=== PATIENT | female | born 1970 | race Caucasian/White ===

== ENCOUNTER → 2018-03-23 16:16 | Emergency (ER) | payer SELFPAY ==
[2018-03-23 16:49] LABS: Urine Appearance Clear; Urine Blood 1+ (Negative); Urine Color Straw; Urine Ketones Negative (Negative); Urine Protein Negative (Negative); Urine Red Blood Cell Absent (Absent); Urine Specific Gravity 1.004 (1.010-1.030); Urine Urobilinogen Negative (Negative); Urine White Blood Cell Trace(0-5/hpf) (Absent)
[2018-03-23 17:22] LABS: ABS Basophils 0.1 10^3/ul (0-0.2); ABS Eosinophils 0.2 10^3/ul (0-0.6); ABS Lymphocytes 2.7 10^3/ul (1.0-4.8); ABS Monocytes 0.6 10^3/ul (0-0.8); ABS Neutrophils 4.3 10^3/ul (1.5-7.7); ABS Nucleated RBC 0 10^3/ul; Hematocrit 38 % (35-47); Lymphocyte % 34.8 % (25-47); Mean Corpuscular HGB Conc 34 g/dl (31-36); Mean Corpuscular Hemoglobin 29 pg (27-31); Mean Corpuscular Volume 86 fL (80-97); Mean Platelet Volume 7.9 um3 (7.4-10.4); Nucleated Red Blood Cells % 0; Platelet Count 306 10^3/ul (150-450); Red Blood Count 4.49 10^6/ul (4.00-5.40); Red Cell Distribution Width 14 % (10.5-15); White Blood Count 7.8 10^3/ul (3.5-10.8)
[2018-03-23 17:39] LABS: EGFR Non-African American 90.8 (>60)
--- NOTE | 2018-03-23 21:02 | ED ---
HPI Diabetic - HPI Summary HPI Summary: The patient is a 47 y/o F presenting to [facility] accompanied by her with a chief complaint of low blood sugar and feeling of dizziness with an onset starting yesterday. 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 She measured her glucose level, which was low at 48 mg/dL. She ate sugary and carbohydrate-full foods, and her blood sugar went back up to 70 mg/dL but decreased again two hours later. 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 She reports that she has been on a low-carb diet for 12 years, and a gastric bypass surgery 7 years ago that caused her to have similar symptoms only within the first year after the surgery. However, her glucose levels have never been as low as they were yesterday, and she never felt like she was going to have a syncopal episode, but yesterday she was near syncope. When she was having a similar experience after her surgery, she was seeing her surgeon at [facility], but she has never seen an chemical recovery operator. She currently takes Synthroid, Lioresal, Gabapentin, and Zyrtec. She does not have a hx of diabetes. - History Of Current Complaint Chief Complaint: EDDiabeticProb Hx Obtained From: Patient Onset/Duration: Sudden Onset, Lasting Days - starting yesterday, Still Present Timing: Constant Severity Initially: Moderate Severity Currently: Moderate Character: Alert Related History: Other - gastric bypass surgery - Allergies/Home Medications Allergies/Adverse Reactions: Allergies Allergy/AdvReac Type Severity Reaction Status Date / Time clavulanic acid Allergy Unknown Verified 03/23/18 16:22 Reaction Details erythromycin base Allergy Unknown Verified 03/23/18 16:22 Reaction Details Home Medications: Home Medications Baclofen TAB* [Lioresal TAB*] 10 mg PO TID PRN 03/23/18 [History Confirmed 03/23] Gabapentin CAP(*) 300 mg PO Q6HR PRN 03/23/18 [History Confirmed 03/23/18] Levothyroxine TAB* [Synthroid 75 MCG TAB*] 75 mg PO DAILY 03/23/18 [History Confirmed 03/23/18] NK [No Home Medications Reported] 03/23/18 [History Confirmed 03/23/18] ZyrTEC 10 MG TAB* 0.5 tab PO DAILY 03/23/18 [History Confirmed 03/23/18] PMH/Surg Hx/FS Hx/Imm Hx Endocrine/Hematology History: Reports: Hx Thyroid Disease - hypothyroid Denies: Hx Diabetes Cardiovascular History: Denies: Hx Hypertension Sensory History: Reports: Other Sensory Impairments - Meniere's Disease Infectious Disease History: No Infectious Disease History: Denies: Traveled Outside the [place] in Last 30 Days - Family History Known Family History: Negative: Cardiac Disease - Social History Alcohol Use: None Substance Use Type: Reports: None Smoking Status (MU): Current Every Day Smoker Review of Systems Negative: Fever Neurological: Other - dizziness/fuzzy feeling, near syncope Positive: Syncope All Other Systems Reviewed And Are Negative: Yes Physical Exam - Summary Physical Exam Summary: Appearance: Well-appearing, Well-nourished, lying in bed comfortable Skin: Warm, dry, no obvious rash Eyes: sclera anicteric, no conjunctival pallor ENT: mucous membranes moist Neck: deferred Respiratory: No signs of respiratory distress Cardiovascular: Appears well perfused, pulses are nml Abdomen: deferred Musculoskeletal: Moving all 4 extremities without obvious discomfort Neurological: Awake and alert, mentation is normal, speech is fluent and appropriate Psychiatric: affect is normal, does not appear anxious or depressed Triage Information Reviewed: Yes Vital Signs On Initial Exam: Initial Vitals Temp Pulse Resp BP Pulse Ox 98.4 F 79 16 117/67 100 03/23/18 16:18 03/23/18 16:18 03/23/18 16:18 03/23/18 16:18 03/23/18 16:18 Vital Signs Reviewed: Yes Diagnostics - Vital Signs Vital Signs Temp Pulse Resp BP Pulse Ox 03/23/18 19:20 97.2 F 68 16 120/74 100 03/23/18 16:18 98.4 F 79 16 117/67 100 - Laboratory Lab Results: Lab Results 03/23/18 03/23/18 03/23/18 Range/Units 16:27 16:28 16:59 WBC 7.8 (3.5-10.8) 10^3/ul RBC 4.49 (4.00-5.40) 10^6/ul Hgb 13.0 (12.0-16.0) g/dl Hct 38 (35-47) % MCV 86 (80-97) fL MCH 29 (27-31) pg MCHC 34 (31-36) g/dl RDW 14 (10.5-15) % Plt Count 306 (150-450) 10^3/ul MPV 7.9 (7.4-10.4) um3 Neut % (Auto) 55.0 (38-83) % Lymph % (Auto) 34.8 (25-47) % [place] % (Auto) 7.5 H (0-7) % Eos % (Auto) 2.0 (0-6) % Baso % (Auto) 0.7 (0-2) % Absolute Neuts (auto) 4.3 (1.5-7.7) 10^3/ul Absolute Lymphs (auto) 2.7 (1.0-4.8) 10^3/ul Absolute Monos (auto) 0.6 (0-0.8) 10^3/ul Absolute Eos (auto) 0.2 (0-0.6) 10^3/ul Absolute Basos (auto) 0.1 (0-0.2) 10^3/ul Absolute Nucleated RBC 0 10^3/ul Nucleated RBC % 0 Sodium (135-145) mmol/L Potassium (3.5-5.0) mmol/L Chloride (101-111) mmol/L Carbon Dioxide (22-32) mmol/L Anion Gap (2-11) mmol/L BUN (6-24) mg/dL Creatinine (0.51-0.95) mg/dL Est GFR ( Amer) (>60) Est GFR (Non-Af Amer) (>60) BUN/Creatinine Ratio (8-20) Glucose (70-100) mg/dL POC Glucose (mg/dL) 91 (70-100) mg/dL Calcium (8.6-10.3) mg/dL Total Bilirubin (0.2-1.0) mg/dL AST (13-39) U/L ALT (7-52) U/L Alkaline Phosphatase (34-104) U/L C-Reactive Protein (<8.01) mg/L Total Protein (6.4-8.9) g/dL Albumin (3.2-5.2) g/dL Globulin (2-4) g/dL Albumin/Globulin Ratio (1-3) Urine Color Straw Urine Appearance Clear Urine pH 6.0 (5-9) Ur Specific [place] 1.004 L (1.010-1.030) Urine Protein Negative (Negative) Urine Ketones Negative (Negative) Urine Blood 1+ A (Negative) Urine Nitrate Negative (Negative) Urine Bilirubin Negative (Negative) Urine Urobilinogen Negative (Negative) Ur Leukocyte Esterase Negative (Negative) Urine WBC (Auto) Trace(0-5/hpf) (Absent) Urine RBC (Auto) Absent (Absent) Ur Squamous Epith Cells Present A (Absent) Urine Bacteria Absent (Absent) Urine Glucose Negative (Negative) 03/23/18 03/23/18 Range/Units 16:59 20:39 WBC (3.5-10.8) 10^3/ul RBC (4.00-5.40) 10^6/ul Hgb (12.0-16.0) g/dl Hct (35-47) % MCV (80-97) fL MCH (27-31) pg MCHC (31-36) g/dl RDW (10.5-15) % Plt Count (150-450) 10^3/ul MPV (7.4-10.4) um3 Neut % (Auto) (38-83) % Lymph % (Auto) (25-47) % [place] % (Auto) (0-7) % Eos % (Auto) (0-6) % Baso % (Auto) (0-2) % Absolute Neuts (auto) (1.5-7.7) 10^3/ul Absolute Lymphs (auto) (1.0-4.8) 10^3/ul Absolute Monos (auto) (0-0.8) 10^3/ul Absolute Eos (auto) (0-0.6) 10^3/ul Absolute Basos (auto) (0-0.2) 10^3/ul Absolute Nucleated RBC 10^3/ul Nucleated RBC % Sodium 137 (135-145) mmol/L Potassium 4.5 (3.5-5.0) mmol/L Chloride 103 (101-111) mmol/L Carbon Dioxide 27 (22-32) mmol/L Anion Gap 7 (2-11) mmol/L BUN 19 (6-24) mg/dL Creatinine 0.69 (0.51-0.95) mg/dL Est GFR ( Amer) 109.9 (>60) Est GFR (Non-Af Amer) 90.8 (>60) BUN/Creatinine Ratio 27.5 H (8-20) Glucose 88 (70-100) mg/dL POC Glucose (mg/dL) 67 L (70-100) mg/dL Calcium 9.8 (8.6-10.3) mg/dL Total Bilirubin 0.20 (0.2-1.0) mg/dL AST 18 (13-39) U/L ALT 16 (7-52) U/L Alkaline Phosphatase 41 (34-104) U/L C-Reactive Protein 1.42 (<8.01) mg/L Total Protein 7.7 (6.4-8.9) g/dL Albumin 4.4 (3.2-5.2) g/dL Globulin 3.3 (2-4) g/dL Albumin/Globulin Ratio 1.3 (1-3) Urine Color Urine Appearance Urine pH (5-9) Ur Specific [place] (1.010-1.030) Urine Protein (Negative) Urine Ketones (Negative) Urine Blood (Negative) Urine Nitrate (Negative) Urine Bilirubin (Negative) Urine Urobilinogen (Negative) Ur Leukocyte Esterase (Negative) Urine WBC (Auto) (Absent) Urine RBC (Auto) (Absent) Ur Squamous Epith Cells (Absent) Urine Bacteria (Absent) Urine Glucose (Negative) Result Diagrams: 03/23/18 16:59 03/23/18 16:59 Lab Statement: Any lab studies that have been ordered have been reviewed, and results considered in the medical decision making process. Diabetic Course/Dx - Diagnoses Provider Diagnoses: Hypoglycemia after GI (gastrointestinal) surgery - Physician Notifications Discussed Care Of Patient With: Jalen Ortega - chemical recovery operator Time Discussed With Above Provider: 21:00 Instructed by Provider To: Other - I consulted with Dr. Ortega, endocrinology, who stated that he would be happy to see the patient in his office. Discharge - Sign-Out/Discharge Documenting (check all that apply): Patient Departure - Patient will be discharged home. - Discharge Plan Condition: Good Disposition: HOME Patient Education Materials: Non-diabetic Hypoglycemia (ED), What to Do if Your Blood Sugar is Low (ED) Referrals: Jalen Ortega MD [Medical Doctor] - Additional Instructions: Dr. Ortega is a local chemical recovery operator who is well versed in helping patient manage complications such as this, contact his office in the morning to arrange an appt. In the interim adding psyllium fiber to meals, and making sure to include fat in a meal, will be helpful. Make sure to carry some type of easily absorbable carb like glucose tablets in case of symptoms of hypoglycemia. - Billing Disposition and Condition Condition: GOOD Disposition: Home - Attestation Statements Document Initiated by María: Yes Documenting Scribe: Teena York Provider For Whom María is Documenting (Include Credential): Dr. Adebayo Bunn MD Scribe Attestation: I, foster Hernandezed for Dr. Adebayo Bunn MD on 03/23/18 at 2330. Scribe Documentation Reviewed: Yes Provider Attestation: The documentation as recorded by the Teena green accurately reflects the service I personally performed and the decisions made by me, Dr. Adebayo Bunn MD
[2018-03-23 21:27] VITALS: BP 111/77
--- NOTE | 2018-03-24 03:50 | ED ---
Course/Dx - Course Course Of Treatment: The patient is a 47 y/o F presenting to [facility] accompanied by her with a chief complaint of low blood sugar and feeling of dizziness with an onset starting yesterday. 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 She measured her glucose level, which was low at 48 mg/dL. She ate sugary and carbohydrate-full foods, and her blood sugar went back up to 70 mg/dL but decreased again two hours later. 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 She reports that she has been on a low-carb diet for 12 years, and a gastric bypass surgery 7 years ago that caused her to have similar symptoms only within the first year after the surgery. However, her glucose levels have never been as low as they were yesterday, and she never felt like she was going to have a syncopal episode, but yesterday she was near syncope. When she was having a similar experience after her surgery, she was seeing her surgeon at [facility], but she has never seen an driver engineer. She currently takes Synthroid, Lioresal, Gabapentin, and Zyrtec. She does not have a hx of diabetes. Physical exam is normal. In the ED course, lab results reveal increased in BUN/creatine and hypoglycemia. Second glucose level is increased at normal level. Urine results are negative. Patient will be diagnosed and discharged home with instructions for hypoglycemia. She will follow up with Dr. Ortega, endocrinology. Return precautions given for new or worsening symptoms. Patient understands and agrees with this plan. - Diagnoses Provider Diagnoses: Hypoglycemia after GI (gastrointestinal) surgery - Provider Notifications Time Discussed With Above Provider: 21:00 Instructed by Provider To: Other - I consulted with Dr. Ortega, endocrinology, who stated that he would be happy to see the patient in his office. Discharge - Sign-Out/Discharge Documenting (check all that apply): Patient Departure - Patient will be discharged home. - Discharge Plan Condition: Good Disposition: HOME Patient Education Materials: Non-diabetic Hypoglycemia (ED), What to Do if Your Blood Sugar is Low (ED) Referrals: Jalen Ortega MD [Medical Doctor] - Additional Instructions: Dr. Ortega is a local driver engineer who is well versed in helping patient manage complications such as this, contact his office in the morning to arrange an appt. In the interim adding psyllium fiber to meals, and making sure to include fat in a meal, will be helpful. Make sure to carry some type of easily absorbable carb like glucose tablets in case of symptoms of hypoglycemia. - Billing Disposition and Condition Condition: GOOD Disposition: Home - Attestation Statements Document Initiated by María: Yes Documenting Scribe: Teena York Provider For Whom María is Documenting (Include Credential): Dr. Adebayo Bunn MD Scribe Attestation: I, Teena York scrdicksoned for Dr. Adebayo Bunn MD on 03/24/18 at 0350. [place] Documentation Reviewed: Yes Provider Attestation: The documentation as recorded by the Teena green accurately reflects the service I personally performed and the decisions made by me, Dr. Adebayo Bunn MD
--- NOTE | 2018-03-26 08:06 | ED ---
Progress - Progress Note Progress Note: Patient's final urine culture reveals 25-50,000 Escherichia coli. She was seen for multiple episodes of hypoglycemia and no reports of symptoms are in her note. Her urine was positive for blood and squamous cellsmost likely contamination. With low colony count, no fever, normal WBC's and no symptoms , will refrain from treatment at this time. Course/Dx - Course Course Of Treatment: The patient is a 47 y/o F presenting to [facility] accompanied by her with a chief complaint of low blood sugar and feeling of dizziness with an onset starting yesterday. 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 She measured her glucose level, which was low at 48 mg/dL. She ate sugary and carbohydrate-full foods, and her blood sugar went back up to 70 mg/dL but decreased again two hours later. 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 She reports that she has been on a low-carb diet for 12 years, and a gastric bypass surgery 7 years ago that caused her to have similar symptoms only within the first year after the surgery. However, her glucose levels have never been as low as they were yesterday, and she never felt like she was going to have a syncopal episode, but yesterday she was near syncope. When she was having a similar experience after her surgery, she was seeing her surgeon at [facility], but she has never seen an music supervisor. She currently takes Synthroid, Lioresal, Gabapentin, and Zyrtec. She does not have a hx of diabetes. Physical exam is normal. In the ED course, lab results reveal increased in BUN/creatine and hypoglycemia. Second glucose level is increased at normal level. Urine results are negative. Patient will be diagnosed and discharged home with instructions for hypoglycemia. She will follow up with Dr. Ortega, endocrinology. Return precautions given for new or worsening symptoms. Patient understands and agrees with this plan. - Diagnoses Provider Diagnoses: Hypoglycemia after GI (gastrointestinal) surgery - Provider Notifications Time Discussed With Above Provider: 21:00 Instructed by Provider To: Other - I consulted with Dr. Ortega, endocrinology, who stated that he would be happy to see the patient in his office. Discharge - Sign-Out/Discharge Documenting (check all that apply): Post-Discharge Follow Up - Discharge Plan Condition: Good Disposition: HOME Patient Education Materials: Non-diabetic Hypoglycemia (ED), What to Do if Your Blood Sugar is Low (ED) Referrals: Jalen Ortega MD [Medical Doctor] - Additional Instructions: Dr. Ortega is a local music supervisor who is well versed in helping patient manage complications such as this, contact his office in the morning to arrange an appt. In the interim adding psyllium fiber to meals, and making sure to include fat in a meal, will be helpful. Make sure to carry some type of easily absorbable carb like glucose tablets in case of symptoms of hypoglycemia. - Billing Disposition and Condition Condition: GOOD Disposition: Home
== END | disposition home or self-care (01) ==
LOC: ED 16:16
DX: R73.9 Hyperglycemia, unspecified (principal); Z87.19 Personal history of other diseases of the digestive system; R55 Syncope and collapse; F17.210 Nicotine dependence, cigarettes, uncomplicated
CPT/HCPCS: 36415; 80053; 81003; 81015; 85025; 86140; 87077; 87086; 87186; 99282